=== PATIENT | female | born 1995 | race Caucasian/White ===

== ENCOUNTER 2019-01-12 18:22 | Emergency (ER) | payer OTHER ==
[2019-01-12 19:58] LABS: Urine Blood NEGATIVE (NEG); Urine Glucose NEGATIVE (NEG); Urine Protein NEGATIVE (NEG); Urine Specific Gravity 1.025 (1.005-1.030)
[2019-01-12 20:04] LABS: Urine Bacteria >50 /HPF (<20); Urine Culture Reflex Order NOT NEEDED; Urine RBC <5 /HPF (NONE SEEN)
[2019-01-12 20:27] LABS: Basophils % 0.4 % (0-1.3); Hematocrit 34.7 % (36.0-45.0); Lymphocytes % 18.3 % (15.3-44.8); RBC Red Blood Cell Count 4.21 M/uL (3.86-4.86)
[2019-01-12 20:52] LABS: BUN Blood Urea Nitrogen 9 mg/dL (7-18); Bicarbonate 24 mmol/L (21-32); Glucose Level 81 mg/dL (74-106); Potassium 3.5 mmol/L (3.5-5.1); Sodium Level 140 mmol/L (136-145)
--- NOTE | 2019-01-12 20:52 | RAD REPORT ---
EXAM DESCRIPTION: US - Transvaginal OB - 01/12/2019 8:40 pm CLINICAL HISTORY: with pelvic pain COMPARISON: None. FINDINGS: The uterus is retroverted and measures 8 x 6 x 7 centimeters. A normal appearing gestatio nal sac is present within the endometrium. Within this is a yolk sac and pole with a crown-rump length 11 millimeters. Cardiac activity 161 beats per minute Right ovary is normal in size and echotexture. Left ovary was not seen secondary to overlying bowel g as. Right and left adnexal unremarkable. No significant free fluid is seen. IMPRESSION: Single live intrauterine with an estimated gestational age 7 weeks 1 day CHRISTAL 08/30/2019
[2019-01-12] MEDS ORDERED: CEFTRIAXONE/SWI 1gm 1 GM/10 ML SYR ONE (21:02)
[2019-01-12 21:07] LABS: HCG, Quantitative 63712 mIU/mL (1-3)
--- NOTE | 2019-01-12 21:37 | EDPHYS ---
Physician Documentation [facility] Name: Argelia Oswald Age: 23 yrs Sex: Female : 1995 Arrival Date: 01/12/2019 Time: 18:28 Bed 25 Private MD: Cristopher Parnell ED Physician Jorge Middlteon HPI: 01/12 20:26 This 23 yrs old Female presents to ER via Wheelchair with complaints of snw Cough, Chest Pressure, Nausea/Vomiting, 6 wks preg, Urinary Problem, . 20:26 The patient or guardian reports cough, flu symptoms. Onset: The symptoms/episode snw began/occurred gradually, 1 month(s) ago, and became persistent. Severity of symptoms: At their worst the symptoms were moderate. Associated signs and symptoms: Pertinent positives: fever, nausea, vomiting. It is unknown whether or not the patient has had similar symptoms in the past. The patient has not recently seen a physician. + upt last week. ZOOKEEPER: 18:39 2, Full Term 0, Premature 1, 0, Living 1, LMP 11/26/2018 aa5 Historical: - Allergies: 18:38 No Known Allergies; aa5 - PMHx: 18:39 Paraplegic since 2011; aa5 - PSHx: 18:39 Back surgery with rods and screws; aa5 - Immunization history:: Flu vaccine is not up to date. - Social history:: Smoking status: Patient/guardian denies using tobacco. - Ebola Screening: : No symptoms or risks identified at this time. ROS: 20:26 Constitutional: Negative for fever, chills, and weight loss, Eyes: Negative for injury, snw pain, redness, and discharge, ENT: Negative for injury, pain, and discharge, Neck: Negative for injury, pain, and swelling, Cardiovascular: Negative for chest pain, palpitations, and edema. 20:26 Back: Negative for injury and pain, : Negative for injury, bleeding, discharge, and swelling, MS/Extremity: Negative for injury and deformity, Skin: Negative for injury, rash, and discoloration, Neuro: Negative for headache, weakness, numbness, tingling, and seizure, Psych: Negative for depression, anxiety, suicide ideation, homicidal ideation, and hallucinations. 20:26 Respiratory: Positive for cough, with no reported sputum. 20:26 Abdomen/GI: Positive for nausea and vomiting, abdominal cramps. Exam: 20:25 Constitutional: This is a well developed, well nourished patient who is awake, alert, snw and in no acute distress. 20:25 Head/Face: Normocephalic, atraumatic. Eyes: Pupils equal round and reactive to light, extra-ocular motions intact. Lids and lashes normal. Conjunctiva and sclera are non-icteric and not injected. Cornea within normal limits. Periorbital areas with no swelling, redness, or edema. ENT: Nares patent. No nasal discharge, no septal abnormalities noted. Tympanic membranes are normal and external auditory canals are clear. Oropharynx with no redness, swelling, or masses, exudates, or evidence of obstruction, uvula midline. Mucous membranes moist. Neck: Trachea midline, no thyromegaly or masses palpated, and no cervical lymphadenopathy. Supple, full range of motion without nuchal rigidity, or vertebral point tenderness. No Meningismus. Chest/axilla: Normal chest wall appearance and motion. Nontender with no deformity. No lesions are appreciated. Cardiovascular: Regular rate and rhythm with a normal S1 and S2. No gallops, murmurs, or rubs. Normal PMI, no JVD. No pulse deficits. Respiratory: Lungs have equal breath sounds bilaterally, clear to auscultation and percussion. No rales, rhonchi or wheezes noted. No increased work of breathing, no retractions or nasal flaring. Back: No spinal tenderness. No costovertebral tenderness. Full range of motion. Skin: Warm, dry with normal turgor. Normal color with no rashes, no lesions, and no evidence of cellulitis. MS/ Extremity: Pulses equal, no cyanosis. Neurovascular intact. Full, normal range of motion. Neuro: Awake and alert, GCS 15, oriented to person, place, time, and situation. Cranial nerves II-XII grossly intact. Motor strength 5/5 in all extremities. Sensory grossly intact. Cerebellar exam normal. Normal gait. Psych: Awake, alert, with orientation to person, place and time. Behavior, mood, and affect are within normal limits. 20:25 Abdomen/GI: Inspection: abdomen appears normal, Bowel sounds: normal, in all quadrants, Palpation: mild abdominal tenderness, moderate abdominal tenderness, in the left lower quadrant. Vital Signs: 18:39 BP 115 / 75; Pulse 81; Resp 18 S; Temp 97.2(TE); Pulse Ox 99% on R/A; Weight 74.84 kg aa5 (R); Pain 7/10; 19:55 BP 121 / 69; Pulse 88; Resp 17 S; Pulse Ox 100% on R/A; ca1 21:40 BP 118 / 74; Pulse 79; Resp 18; Temp 97.4(O); Pulse Ox 100% ; rv MDM: 18:44 Patient medically screened. murali 21:37 Data reviewed: vital signs, nurses notes. Data interpreted: Pulse oximetry: on room air snw is 100 %. Interpretation: normal. Counseling: I had a detailed discussion with the patient and/or guardian regarding: the historical points, exam findings, and any diagnostic results supporting the discharge/admit diagnosis, lab results, radiology results, the need for outpatient follow up, to return to the emergency department if symptoms worsen or persist or if there are any questions or concerns that arise at home. Special discussion: Based on the patient's Hx, exam, and Dx evaluation, there is no indication for emergent surgery or inpatient Tx. It is understood by the patient/guardian that if the Sx's persist or worsen they need to return immediately for re-evaluation. Based on the history and exam findings, there is no indication for further emergent testing or inpatient evaluation. I discussed with the patient/guardian the need to see the OB Gyne specialist for further evaluation of the symptoms. I discussed with the patient/guardian the need to see the primary care provider for further evaluation of the symptoms. 01/12 18:34 Order name: Flu snw 01/12 18:34 Order name: Influenza Screen (A ; Complete Time: 20:21 EDMS 01/12 18:57 Order name: Urine Culture snw 01/12 18:57 Order name: Urine Microscopic Only; Complete Time: 20:05 snw 01/12 19:57 Order name: Urine Dipstick--Ancillary (enter results); Complete Time: 20:05 em1 01/12 19:57 Order name: Urine --Ancillary (enter results); Complete Time: 20:05 em1 01/12 20:04 Order name: Strep; Complete Time: 20:41 ca1 01/12 20:04 Order name: US Transvaginal Ob; Complete Time: 21:27 ca1 01/12 20:04 Order name: Quantitative Hcg; Complete Time: 21:27 ca1 01/12 20:04 Order name: CBC with Diff; Complete Time: 21:27 ca1 01/12 20:04 Order name: Chem 7; Complete Time: 21:27 ca1 01/12 20:04 Order name: Abo/rh Typing; Complete Time: 21:27 ca1 01/12 20:35 Order name: Throat Culture EDAR 01/12 18:57 Order name: Cath; Complete Time: 19:14 snw 01/12 18:57 Order name: Urine Test (obtain specimen); Complete Time: 19:14 snw 01/12 18:57 Order name: Urine Dipstick-Ancillary (obtain specimen); Complete Time: 19:14 snw 01/12 20:04 Order name: SL; Complete Time: 20:19 ca1 Administered Medications: 21:04 Drug: Rocephin - (cefTRIAXone) 1 grams Route: IVPB; Infused Over: 30 mins; Site: left rv antecubital; 21:04 Follow up: IV Status: Completed infusion rv Disposition: 01/13 07:52 Co-signature as Attending Physician, Jorge Middleton MD I agree with the assessment and murali plan of care. Disposition: 01/12/19 21:36 Discharged to Home. Impression: state, Urinary tract infection, site not specified. - Condition is Stable. - Discharge Instructions: First Trimester of , and Urinary Tract Infection. - Prescriptions for Diclegis 10- 10 mg Oral tablet,delayed release (DR/EC) - take 1 tablet by ORAL route as directed and 2 tablets at bedtime; 30 tablet. Augmentin 875- 125 mg Oral Tablet - take 1 tablet by ORAL route every 12 hours for 10 days; 20 tablet. - Work release form, Medication Reconciliation Form, Thank You Letter, Antibiotic Education, Prescription Opioid Use form. - Follow up: Private Physician; When: 2 - 3 days; Reason: Recheck today's complaints, Continuance of care, Re-evaluation by your physician. Follow up: Emergency Department; When: As needed; Reason: Worsening of condition. Signatures: Dispatcher [employer] Jorge Ardon MD MD cha Therrien, Shelly, MANAGER CUSTOMS-C MANAGER CUSTOMS-[place] Tamara Aguirre, RN RN aa5 [address] RN RN rv Allegra Salazar RN RN ca1 Corrections: (The following items were deleted from the chart) 01/12 21:41 21:36 01/12/2019 21:36 Discharged to Home. Impression: state; Urinary tract rv infection, site not specified. Condition is Stable. Forms are Medication Reconciliation Form, Thank You Letter, Antibiotic Education, Prescription Opioid Use. Follow up: Private Physician; When: 2 - 3 days; Reason: Recheck today's complaints, Continuance of care, Re-evaluation by your physician. Follow up: Emergency Department; When: As needed; Reason: Worsening of condition. snw
--- NOTE | 2019-01-12 21:37 | ER ---
Nurse's Notes [facility] Name: Argelia Oswald Age: 23 yrs Sex: Female : 1995 Arrival Date: 01/12/2019 Time: 18:28 Bed 25 Private MD: Cristopher Parnell Diagnosis: state;Urinary tract infection, site not specified Presentation: 01/12 18:36 Presenting complaint: Patient states: "it started with a cough about a month ago and aa5 now I am coughing up stuff". Pt c/o back pain and nausea/vomiting. Pt also reports chest pain with when taking a deep breath. Pt reports positive test 1 week ago. Pt also reports sore throat. Transition of care: patient was not received from another setting of care. Onset of symptoms was 2018. Risk Assessment: Do you want to hurt yourself or someone else? Patient reports no desire to harm self or others. Care prior to arrival: None. 18:36 Acuity: REGAN 3 aa5 18:36 Method Of Arrival: Wheelchair aa5 18:40 Initial Sepsis Screen: Does the patient meet any 2 criteria? No. Patient's initial aa5 sepsis screen is negative. Does the patient have a suspected source of infection? No. Patient's initial sepsis screen is negative. 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 - Social history:: Smoking status: Patient/guardian denies using tobacco. - Ebola Screening: : No symptoms or risks identified at this time. Screenin:50 Abuse screen: Denies threats or abuse. Denies injuries from another. Nutritional ca1 screening: No deficits noted. Tuberculosis screening: No symptoms or risk factors identified. Fall Risk Secondary diagnosis (15 points) impaired mobility, Ambulatory Aid- Crutches/Cane/Walker (15 pts). Assessment: 18:50 General: Appears in no apparent distress. comfortable, Behavior is calm, cooperative, ca1 appropriate for age. Pain: Complains of pain in suprapubic area Pain radiates to low back area Pain currently is 8 out of 10 on a pain scale. Pain began 2-3 days ago. Neuro: Level of Consciousness is awake, alert, obeys commands, Oriented to person, place, time, situation, Appropriate for age. Cardiovascular: Heart tones S1 S2 present Capillary refill < 3 seconds Patient's skin is warm and dry. Respiratory: Airway is patent Respiratory effort is even, unlabored, Respiratory pattern is regular, symmetrical, Breath sounds are clear bilaterally. Respiratory: Reports cough that is. GI: Abdomen is round non-distended, Bowel sounds present X 4 quads. Abd is soft X 4 quads Abdomen is tender to palpation in suprapubic area. : Reports frequent UTI. EENT: No deficits noted. No signs and/or symptoms were reported regarding the EENT system. Derm: Skin is intact, is healthy with good turgor, Skin is pink, warm \\T\\ dry. Musculoskeletal: Circulation, motion, and sensation intact. Capillary refill < 3 seconds, Range of motion: limited in left hip, left knee, left ankle, right hip, right knee and right ankle. 19:55 Reassessment: Patient appears in no apparent distress at this time. Patient and/or ca1 family updated on plan of care and expected duration. Pain level reassessed. Patient is alert, oriented x 3, equal unlabored respirations, skin warm/dry/pink. Vital Signs: 18:39 BP 115 / 75; Pulse 81; Resp 18 S; Temp 97.2(TE); Pulse Ox 99% on R/A; Weight 74.84 kg aa5 (R); Pain 7/10; 19:55 BP 121 / 69; Pulse 88; Resp 17 S; Pulse Ox 100% on R/A; ca1 21:40 BP 118 / 74; Pulse 79; Resp 18; Temp 97.4(O); Pulse Ox 100% ; rv ED Course: 18:28 Patient arrived in ED. am2 18:29 Cristopher Parnell MD is Private Physician. am2 18:35 Shan[facility] Hunter [facility]C [facility] snw 18:35 Jorge Middleton MD is Attending Physician. snw 18:36 Arm band placed on. aa5 18:37 Triage completed. aa5 18:43 Allegra Salazar, RN is Primary Nurse. ca1 18:50 Patient has correct armband on for positive identification. Placed in gown. Bed in low ca1 position. Call light in reach. Side rails up X 1. Pulse ox on. NIBP on. Warm blanket given. 18:53 Flu Sent. ca1 19:14 Urine Culture Sent. ca1 19:14 No provider procedures requiring assistance completed. Urine collected: straight cath ca1 specimen, cloudy, Amount Returned: 60mL. Straight cath inserted, using sterile technique, 16 Fr. Specimen obtained. Returned clear yellow urine. Patient tolerated well. Patient maintains SpO2 saturation greater than 95% on room air. 20:19 Initial lab(s) drawn, by me, sent to lab. Inserted saline lock: 22 gauge in left ca1 antecubital area, using aseptic technique. Blood collected. 20:41 US Transvaginal Ob In Process Unspecified. EDMS 21:41 IV discontinued, intact, bleeding controlled, No redness/swelling at site. rv Administered Medications: 21:04 Drug: Rocephin - (cefTRIAXone) 1 grams Route: IVPB; Infused Over: 30 mins; Site: left rv antecubital; 21:04 Follow up: IV Status: Completed infusion rv Outcome: 21:36 Discharge ordered by MD. snw 21:41 Discharged to home ambulatory. rv 21:41 Condition: good 21:41 Discharge instructions given to patient, Instructed on discharge instructions, follow up and referral plans. medication usage, Demonstrated understanding of instructions, follow-up care, medications, Prescriptions given X 2. 21:41 Patient left the ED. rv Addendum: 01/15/2019 07:38 Addendum: Culture Results: Positive urine culture. No further action required. Bacteria i w sensitive to prescribed antibiotic. Signatures: Dispatcher [employer] EDMS Shanique Hunter, LIVE IN HOUSEKEEPER NANNY-C LIVE IN HOUSEKEEPER NANNY-Csnw Jud Barrientos, JUANI GLORIA iw Tamara Aguirre RN RN aa5 Carina Ramirez am[address] RN RN rv Acob, Cheryl, RN RN ca1 Corrections: (The following items were deleted from the chart) 01/12 18:41 18:36 Presenting complaint: Patient states: "it started with a cough about a month ago aa5 and now I am coughing up stuff". Pt c/o back pain and nausea/vomiting. Pt also reports chest pain with when taking a deep breath. Pt reports she is 6 weeks . aa5 18:41 18:36 Presenting complaint: Patient states: "it started with a cough about a month ago aa5 and now I am coughing up stuff". Pt c/o back pain and nausea/vomiting. Pt also reports chest pain with when taking a deep breath. Pt reports positive test 1 week ago. aa5
[2019-01-12 21:49] VITALS: O2SAT 100
[2019-01-12 21:51] VITALS: BP 118/74; TEMP 97.4
== END 2019-01-12 21:41 | disposition home or self-care (01) ==
LOC: ER 18:22
DX: O23.41 Unspecified infection of urinary tract in pregnancy, first trimester (principal); Z3A.01 Less than 8 weeks gestation of pregnancy
CPT/HCPCS: 87070; 87088; 85025; 87086; 80048; 36415; 86900; 81025; 86901; 87081; 84702; 87077; 87186; 87804 ×2; 76817; 51702; 96374; 99284; J0696; 81003; 81015